=== PATIENT | female | born 1945 | race Caucasian/White ===

== ENCOUNTER 2021-04-27 17:21 | Emergency (ER) | payer OTHER, MEDICARE, SELFPAY ==
[2021-04-27] VITALS (7 sets, daily range): BP systolic 118–137; BP diastolic 52–67; PULSE 66–75; RESP 18; TEMP 36.3–36.7; O2SAT 96–99
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
[2021-04-27] MEDS: HYDROcodone/acetaminophen (*CRX) 5-325 MG TABLET 1 TAB PO (19:00)
[2021-04-27] MEDS: fentaNYL CITRATE INJ (*CRX) 100 MCG/2 ML VIAL 50 MCG IV PUSH (20:12)
[2021-04-27 20:20] LABS: Basophils Absolute Auto 0.1 K/mm3 (0.0-0.1); Basophils Percent Auto 0.7 % (0.2-1.2); Eosinophils Absolute Auto 0.2 K/mm3 (0-0.3); Eosinophils Percent Auto 2.2 % (0-4.4); Hematocrit 39.1 % (37.0-47.0); Hemoglobin 12.8 g/dL (12.0-15.0); Immature Granulocyte Absolute 0.08 K/mm3 (0.00-0.031); Immature Granulocyte Percent A 0.9 % (0-0.5); Lymphocytes Percent Auto 10.4 % (18.3-44.2); Mean Corpuscular HGB Conc 32.7 g/dl (32-36); Mean Corpuscular Hemoglobin 32.5 pg (26-34); Mean Corpuscular Volume 99.2 fl (80-100); Mean Platelet Volume 11.1 fl (7.4-10.4); Monocytes Absolute Auto 0.8 K/mm3 (0.1-0.6); Monocytes Percent Auto 9.2 % (2.6-8.5); Neutrophils Absolute Auto 6.7 K/mm3 (1.3-6.7); Neutrophils Percent Auto 76.6 % (45.5-73.1); Platelet Count Result 218 k/mm3 (150-375); Red Blood Count 3.94 M/mm3 (4.2-5.4); Red Cell Distribution Width 13.7 % (11.5-14.5); White Blood Count 8.7 K/mm3 (4.5-10.0)
[2021-04-27 20:29] LABS: INR 0.9; Prothrombin Time 12.5 Seconds (11.1-14.7)
[2021-04-27 20:30] LABS: Partial Thromboplastin Time 30.3 SECONDS (22.3-36.8)
[2021-04-27 20:37] LABS: Alanine Aminotransferase 18 U/L (4-35); Albumin Level 3.8 g/dL (3.5-5.1); Alkaline Phosphatase 98 U/L (38-126); Anion Gap 8 mmol/L (8-16); Aspartate Amino Transferase 40 U/L (14-36); Bilirubin,Total 0.5 mg/dL (0.2-1.3); Blood Urea Nitrogen 16 mg/dL (7-17); Calcium 9.3 mg/dL (8.4-10.2); Carbon Dioxide 27 mmol/L (22-30); Chloride 102 mmol/L (98-107); Estimated CRCL calculation 37 ml/min; Estimated Glomerular Filt Rate 54; Glucose 104 mg/dL (65-110); Potassium 4.1 mmol/L (3.4-5.0); Sodium 137 mmol/L (137-145)
[2021-04-27] MEDS: HYDROmorphone HCL INJ (*CRX) 1 MG/ML SYR 0.5 MG IV PUSH ×2 (20:55→22:53)
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
== END 2021-04-27 23:00 | disposition short-term general hospital (02) ==
LOC: ANHED 18:58
PROVIDERS: Emergency Provider Emergency Medicine
DX: S12.191A Other nondisplaced fracture of second cervical vertebra, initial encounter for closed fracture (principal); M19.90 Unspecified osteoarthritis, unspecified site; Z98.1 Arthrodesis status; R91.8 Other nonspecific abnormal finding of lung field; V53.6XXA Passenger in pick-up truck or van injured in collision with car, pick-up truck or van in traffic accident, initial encounter
CPT/HCPCS: 36415; 70450; 71045; 72125; 72170; 80053; 85025; 85610; 85730; 96374; 96375; 96376; 99285; A9270; J1170; J3010